=== PATIENT | female | born 1965 ===

== ENCOUNTER 2020-01-07 16:32 | Inpatient (IN) ==
[2020-01-07] MEDS ORDERED: 0.9 % SODIUM CHLORIDE 1,000 ML IV ONE (16:44)
[2020-01-07] MEDS ORDERED: PIPERACILLIN SODIUM/TAZOBACTAM 3.375 GM in DEXTROSE 5% IN WATER 50 ML IV ONE (16:46)
--- NOTE | 2020-01-07 16:57 | Emergency Department Note ---
Fever HPI - General Chief Complaint: Fever Stated Complaint: fever, urosepsis, positive blood cultures Time Seen by Provider: 01/07/20 16:43 Source: patient Mode of arrival: ambulatory Limitations: no limitations - History of Present Illness HPI Narrative: 54-year-old female returns to the ER for recheck. She was seen here yesterday and was diagnosed with a urinary tract infection and bronchitis. Also COPD. Yesterday her white blood cell count was 16.7 and she had a temperature of 104. she also had recent travel to [place] where there were ill people and she subsequently got ill. She also had a respiratory panel done as well as Covidien 19 testing. States her fever is slightly improved from yesterday and is been 103 most of today and she has been trying to rest and sleep. Staff had called her to check on her due to positive blood culture results and advised her to return for recheck. She does still have a dry cough. Positive fever and chills. Positive body aches. Had 1 day a few days ago of nausea and vomiting and diarrhea but none since then - Related Data Previous Rx's Medication Instructions Recorded Hydroxychloroquine [Plaquenil] 200 mg PO DAILY #7 tab 01/06/20 Levofloxacin [Levaquin] 500 mg PO DAILY #7 tab 01/06/20 Allergies Allergy/AdvReac Type Severity Reaction Status Date / Time No Known Drug Allergies Allergy Verified 01/07/20 16:34 Review of Systems All systems ED: reviewed and negative except as stated. Fever PMH - Past Medical History [facility] Narrative: Medical History Cigarette smoker (Chronic) Medical history: Denies: asthma, COPD - Social History smoking status: Current every day smoker Physical Exam Limitations: no limitations General appearance: alert Head: atraumatic, normocephalic, normal inspection Eye: Present: normal appearance. Absent: conjunctival injection ENT: Present: mucous membranes moist Chest: Present: symmetric chest wall rise Respiratory: Present: decreased breath sounds (bases bilat). Absent: re spiratory distress, rales/crackles, accessory muscle use Cardiovascular: Present: regular rate, normal heart sounds Extremities: Present: normal inspection, normal capillary refill. Absent: pedal edema Neurological: Present: alert, oriented X3 Psychiatric: Present: normal affect, normal mood Skin: Present: warm, dry, intact, normal color Course Course Narrative: @ [id number] Chicas agrees to accept patient Vital Signs Pulse Rate 110 H 01/07/20 16:32 Respiratory Rate 20 01/07/20 16:32 Blood Pressure 132/85 01/07/20 16:32 Pulse Oximetry (%) 97 01/07/20 16:32 Pulse Rate 110 H 01/07/20 16:32 Respiratory Rate 20 01/07/20 16:32 Blood Pressure 132/85 01/07/20 16:32 Pulse Oximetry (%) 97 01/07/20 16:32 Fever - Lab Data Result diagrams: 01/07/20 17:05 01/07/20 17:05 Disposition Pt seen by ENGINE MONITOR/PA only: Yes Clinical Impression: Bacteremia, UTI (urinary tract infection), Acute bronchitis Disposition: Xfer As Inpt ([facility]) Condition: Fair Referrals: Geri Meyer ARNP [Primary Care Provider] - Time of Disposition: 17:20
--- NOTE | 2020-01-07 17:29 | Internal Med History&Physical ---
Medical - H&P: [facility] Patient information: Note initiated : 01/07/20 at 5:26 pm Service Date, if different from initiated Date: [] Patient: Sabrina Otoole 54 y/o F admitted on for Fever, Urosepsis, Positive Blood Cultures. Chief Complaint: [] History of present illness: Ms. Otoole is a 54 year old F Patient presented yesterday to the ED due to shaking chills fever feeling ill. She was found have a fever of 104 with a leukocytosis. And mildly elevated lactate. She was given IV fluids and repeat lactate was within normal limits. Was diagnosed with urinary tract infection given a antibiotics. Cultures were obtained. And she was discharged on antibiotics. She returns today after being called for blood cultures that were positive for gram-negative bacillus. Patient still feverish though not as significant. She also recently traveled to [place] about a week ago where they were ill people and she subsequently got ill as well. She had covID-19 testing done in the ED yesterday. She had diarrhea at one point but none past few days. Mild dry cough, and reported body aches. Review of Systems: Pertinent positives as above. Denies headache/nausea/vomiting/chest or abdominal pain/dyspnea/diarrhea. Many 10 point review of system reviewed negative Medical - H&P: PMH Medical history: Medical History Cigarette smoker (Chronic) Past surgical history: Partial hysterectomy Breast augmentation Tonsillectomy Family: Mother had stroke Father was a quadriplegic with neck injury Social history: Patient smokes half pack per day Drinks alcohol 3-4 times a week Lives at home with her Medical - H&P: Meds Home Medications Medication Instructions Recorded Confirmed Type Hydroxychloroquine [Plaquenil] 200 mg PO DAILY #7 tab 01/06/20 01/07/20 Rx Levofloxacin [Levaquin] 500 mg PO DAILY #7 tab 01/06/20 01/07/20 Rx Allergies Allergy/AdvReac Type Severity Reaction Status Date / Time No Known Drug Allergies Allergy Verified 01/07/20 16:34 Medical - H&P: Exam - Constitutional Vitals: Pulse Resp BP Pulse Ox 110 H 20 132/85 97 01/07/20 16:32 01/07/20 16:32 01/07/20 16:32 01/07/20 16:32 Exam: General: Alert, Awake, No acute Distress Eyes/N/T: EOMI, PERRL, dry MM Head/Neck: neck supple, normocephalic atraumatic CV: RRR, No murmurs, normal s1/s2 Pulm: Clear b/l, no wheezing/rhonchi/rales Abd: soft, nontender, +BS x4 Ext: no clubbing/cyanosis/edema Neuro: Alert, no focal deficits, moves all extremities, CN 2-12 grossly intact, symmetrical strength b/l upper/lower, sensations intact b/l upper/lower Skin: warm/dry Medical - H&P: Reslt - Labs CBC & Chem 7: 01/07/20 17:05 01/07/20 17:05 Medical - H&P: A/P - Narrative A/P Narrative: A: *UTI: *Bacteremia (GNB): Likely 2/2 above *SIRS: *URI with dry Cough/body aches: r/o COVID-19, test done in ED on *Transaminitis: ?viral vs above *Hyponatremia: *Tobacco abuse: *Emphysema: per smoking history and CT chest findings, no official diagnosis * P: -IVF's -Zosyn, pending BC/UC -COVID19 pending -Check hepatitis panel, if liver enzymes worsen on f/u today will check liver ultrasound -f/u Na -Smoking cessation counseling -f/u with Pulm for possible PFT's -ppx: Lovenox
[2020-01-07] MEDS ORDERED: 0.9 % SODIUM CHLORIDE 1,000 ML IV SCH ×2 (17:45→20:28)
[2020-01-07 17:50] LABS: Basophils # (Auto) 0.02 K/mcL (0.00-0.30); Basophils % (Auto) 0.2 % (0.0-2.0); Eosinophils # (Auto) 0.02 K/mcL (0.00-0.70); Eosinophils % (Auto) 0.2 % (0.0-7.0); Granulocytes % (Auto) 94.1 % (38.0-78.0); Hematocrit 36.7 % (34.1-44.9); Hemoglobin 12.6 g/dL (11.2-15.7); Lymphocytes # (Auto) 0.34 K/mcL (1.50-4.80); Lymphocytes % (Auto) 2.7 % (15.5-49.0); Mean Cell Volume 92.4 fL (80.0-100.0); Mean Corpuscular HGB Conc 34.3 g/dL (31.0-36.0); Mean Platelet Volume 12.1 fL (7.4-10.4); Monocytes # (Auto) 0.35 K/mcL (0.10-0.90); Monocytes % (Auto) 2.8 % (1.0-12.0); Platelet Count 195 K/mcL (140-440); RBC 3.97 M/mcL (3.59-5.38); Red Cell Distribution Width 13.4 % (11.5-14.5); WBC 12.4 K/mcL (4.50-11.00)
[2020-01-07 20:12] LABS: ALT/SGPT 79 U/l (0-40); AST/SGOT 94 U/l (0-37); Albumin 2.6 gm/dL (3.2-5.2); Albumin/Globulin Ratio 0.8 (1.0-2.3); Alkaline Phosphatase 224 U/L (39-117); Bilirubin,Total 0.4 mg/dL (0.0-1.0); Blood Urea Nitrogen 11 mg/dl (6-20); Calcium 8.4 mg/dl (8.6-10.4); Carbon Dioxide 21 mmol/L (22-30); Chloride 99 mmol/L (96-108); Globulin 3.2 gm/dL (2.2-3.7); Glomerular Filtration Rate 97; Glucose 110 mg/dL (70-105)
[2020-01-07] MEDS ORDERED: POTASSIUM CHLORIDE 20 MEQ TABLET PO ONE (20:17)
[2020-01-07] MEDS ORDERED: LACTULOSE 20 GM/30 ML ORAL.SOL PO PRN (20:28)
[2020-01-07] MEDS ORDERED: POTASSIUM CHLORIDE 40 MEQ in DEXTROSE 5% IN WATER 500 ML IV PRN (20:28)
[2020-01-07] MEDS ORDERED: IPRATROPIUM/ALBUTEROL 3 ML AMPUL.NEB NEB PRN (20:28)
[2020-01-07] MEDS ORDERED: ONDANSETRON 4 MG/2 ML VIAL IV PRN (20:28)
[2020-01-07] MEDS ORDERED: MAGNESIUM SULFATE 2 GM/50 ML BAG IV PRN (20:28)
[2020-01-07] MEDS ORDERED: POLYETHYLENE GLYCOL 3350 17 GM PACKET PO PRN (20:28)
[2020-01-07] MEDS ORDERED: POTASSIUM CHLORIDE 20 MEQ TABLET PO PRN ×2 (20:28)
[2020-01-07] MEDS ORDERED: SENNOSIDES 1 TABLET PO PRN (20:28)
[2020-01-07] MEDS: 0.9 % SODIUM CHLORIDE 10 ML SYRINGE IV SCH (21:14)
[2020-01-07] MEDS: DOCUSATE SODIUM 100 MG CAPSULE PO SCH (21:14)
[2020-01-07] MEDS: ACETAMINOPHEN 325 MG TABLET PO PRN (23:49)
[2020-01-08] MEDS: PIPERACILLIN SODIUM/TAZOBACTAM 3.375 GM in DEXTROSE 5% IN WATER 50 ML IV SCH ×5 (00:15→23:44)
[2020-01-08] MEDS: 0.9 % SODIUM CHLORIDE 10 ML SYRINGE IV SCH ×3 (05:43→20:37)
[2020-01-08 07:07] LABS: Basophils # (Auto) 0.01 K/mcL (0.00-0.30); Basophils % (Auto) 0.1 % (0.0-2.0); Eosinophils # (Auto) 0.02 K/mcL (0.00-0.70); Eosinophils % (Auto) 0.1 % (0.0-7.0); Granulocytes % (Auto) 82.7 % (38.0-78.0); Hematocrit 35.6 % (34.1-44.9); Hemoglobin 12.1 g/dL (11.2-15.7); Lymphocytes # (Auto) 1.39 K/mcL (1.50-4.80); Lymphocytes % (Auto) 10.2 % (15.5-49.0); Mean Platelet Volume 11.7 fL (7.4-10.4); Monocytes # (Auto) 0.95 K/mcL (0.10-0.90); Monocytes % (Auto) 6.9 % (1.0-12.0); Platelet Count 245 K/mcL (140-440); RBC 3.83 M/mcL (3.59-5.38); Red Cell Distribution Width 13.8 % (11.5-14.5); WBC 13.7 K/mcL (4.50-11.00)
[2020-01-08 07:33] LABS: ALT/SGPT 104 U/l (0-40); AST/SGOT 150 U/l (0-37); Albumin 2.8 gm/dL (3.2-5.2); Albumin/Globulin Ratio 0.9 (1.0-2.3); Alkaline Phosphatase 258 U/L (39-117); Bilirubin,Direct 0.3 mg/dL (0.0-0.3); Bilirubin,Total 0.5 mg/dL (0.0-1.0); Blood Urea Nitrogen 7 mg/dl (6-20); Calcium 8.6 mg/dl (8.6-10.4); Carbon Dioxide 23 mmol/L (22-30); Chloride 96 mmol/L (96-108); Globulin 3.2 gm/dL (2.2-3.7); Glomerular Filtration Rate 82; Glucose 106 mg/dL (70-105); Lactate Dehydrogenase 270 U/L (94-250); Phosphorous 2.9 mg/dL (2.7-4.5); Triglycerides 159 mg/dl (<150); Uric Acid 2.2 mg/dL (2.5-8.0)
--- NOTE | 2020-01-08 07:37 | Internal Med Progress Note ---
Medical - PN: Subj Patient information: Note initiated : 01/08/20 at 7:33 am Service Date, if different from initiated Date: [] Patient: Sabrina Otoole 54 y/o F admitted on 01/07/20 for Fever, Urosepsis, Positive Blood Cultures. Chief Complaint: [] Interval history: Ms. Otoole is a 54 year old F Patient presented yesterday to the ED due to shaking chills fever feeling ill. She was found have a fever of 104 with a leukocytosis. And mildly elevated lactate. She was given IV fluids and repeat lactate was within normal limits. Was diagnosed with urinary tract infection given a antibiotics. Cultures were obtained. And she was discharged on antibiotics. She returns today after being called for blood cultures that were positive for gram-negative bacillus. Patient still feverish though not as significant. She also recently traveled to [place] about a week ago where they were ill people and she subsequently got ill as well. She had covID-19 testing done in the ED yesterday. She had diarrhea at one point but none past few days. Mild dry cough, and reported body aches. 4/1 Poor sleep first night last night. Feeling a little better. Mild bump in white blood cell count this morning as well as LFTs. Electrolyte imbalance. Cough. Review of Systems: denies headache/chills/nausea/vomiting/chest or abdominal pain/dyspnea/diarrhea. Otherwise see above. - Constitutional Vitals: Vital Signs Temp Pulse Resp BP Pulse Ox 99.8 F H 86 20 137/83 95 01/08/20 04:49 01/08/20 04:49 01/08/20 04:49 01/08/20 04:49 01/08/20 04:49 Period Temp Pulse Resp BP Sys/Hernandez Pulse Ox Last 24 Hr 98.1 F-102.4 F 73-113 18-20 103-152/46-96 95-100 Intake and Output 01/07/20 01/08/20 01/08/20 21:59 05:59 13:59 Intake Total 1171 410 Output Total 1900 Balance 1171 -1490 Weight 59.285 kg Intake & Output: Intake & Output 01/07/20 01/08/20 01/08/20 21:59 05:59 13:59 Intake Total 1171 410 Output Total 1900 Balance 1171 -1490 Weight 59.285 kg Intake: IV 1171 50 Sodium Chloride 0.9% 1,000 ml @ 1121 75 mls/hr IV .[id number] [facility] Rx#: [id number] Zosyn 3.375 gm In Dextrose 5% 50 50 in Water 50 ml @ 100 mls/hr IV Q6H [facility] Rx#:[id number] Oral 360 Output: Void Amount 1900 Other: Urine Appearance Clear Urine Color Bright Yellow Exam: General: Alert, Awake, No acute Distress Eyes/N/T: EOMI, Head/Neck: neck supple, CV: RRR, No murmurs, Pulm: Clear b/l, no wheezing/rhonchi/rales Abd: soft, nontender, +BS x4 Ext: no clubbing/cyanosis/edema Neuro: Alert, no focal deficits, moves all extremities, Skin: warm/dry Medical - PN: Obj Da - Labs CBC & Chem 7: 01/08/20 05:20 01/08/20 05:20 Labs: Abnormal Lab Results 01/08/20 01/08/20 01/07/20 05:20 05:20 18:28 WBC 13.7 H MPV 11.7 H Gran % 82.7 H Lymph % (Auto) 10.2 L Gran # 11.30 H Lymph # (Auto) 1.39 L Trimble # (Auto) 0.95 H Potassium 2.8 L* Carbon Dioxide 21 L Glucose 106 H 110 H Uric Acid 2.2 L Calcium 8.4 L GGT 317 H AST 150 H 94 H ALT 104 H 79 H Alkaline Phosphatase 258 H 224 H Lactate Dehydrogenase 270 H Total Protein 5.8 L Albumin 2.8 L 2.6 L Albumin/Globulin Ratio 0.9 L 0.8 L Triglycerides 159 H 01/07/20 17:05 WBC 12.4 H MPV 12.1 H Gran % 94.1 H Lymph % (Auto) 2.7 L Gran # 11.66 H Lymph # (Auto) 0.34 L Trimble # (Auto) Potassium Carbon Dioxide Glucose Uric Acid Calcium GGT AST ALT Alkaline Phosphatase Lactate Dehydrogenase Total Protein Albumin Albumin/Globulin Ratio Triglycerides Meds: Medications Acetaminophen (Tylenol) 650 mg PO Q6HP PRN PRN Reason: PAIN/FEVER > 101 Last Admin: 01/07/20 23:49 Dose: 650 mg Documented by: Albuterol/Ipratropium (Duoneb) 3 ml NEB Q4HP PRN PRN Reason: Shortness Of Breath Docusate Sodium (Colace) 100 mg PO BID [facility] Last Admin: 01/07/20 21:14 Dose: Not Given Documented by: Enoxaparin Sodium (Lovenox) 40 mg SQ DAILY [facility] Hydroxychloroquine Sulfate (Plaquenil) 200 mg PO BID [facility] Stop: 01/08/20 21:01 Hydroxychloroquine Sulfate (Plaquenil) 200 mg PO DAILY [facility] Stop: 01/13/20 09:01 Potassium Chloride 40 meq/ (Dextrose) 520 mls @ 130 mls/hr IV UD PRN PRN Reason: Potassium < 3 Magnesium Sulfate (Magnesium Sulfate) 2 gm in 50 mls @ 50 mls/hr IV UD PRN PRN Reason: Magnesium </= 1.6 Piperacillin Sod/Tazobactam (Sod 3.375 gm/ Dextrose) 50 mls @ 100 mls/hr IV Q6H [facility]; Protocol Last Admin: 01/08/20 05:45 Dose: 100 mls/hr Documented by: Lactulose (Cephulac) 20 gm PO DAILYP PRN PRN Reason: Constipation Ondansetron HCl (Zofran) 4 mg IV Q4HP PRN PRN Reason: Nausea And Vomiting Polyethylene Glycol (Miralax) 17 gm PO DAILYP PRN PRN Reason: Constipation Potassium Chloride (Kdur) 40 meq PO UD PRN PRN Reason: Potssium is 3-3.5 Potassium Chloride (Kdur) 40 meq PO UD PRN PRN Reason: Potassium < 3 Senna (Senokot) 2 tab PO DAILYP PRN PRN Reason: Constipation Sodium Chloride (Saline Flush) 10 ml IV Q8 [facility] Last Admin: 01/08/20 05:43 Dose: Not Given Documented by: Medical - PN: A/P - Time Spent With Patient Total time spent is greater than 50% in coordination of care (as documented) at patient's floor/unit and/or counseling patient: - Narrative A/P Narrative: A: *UTI (e. coli - pansensitive): *Bacteremia (GNB): Likely 2/2 above *SIRS: -Tm 102.4 last night -leukocytosis, lactate ok *URI with dry Cough/body aches: r/o COVID-19, test done in ED on -RVP neg *Transaminitis: 2/2 ?viral vs above. was started on hydroxychloroquine on from ED but liver enzymes were elevated at that time as well -hepatitis panel neg *Hyponatremia/hypokalemia: *Tobacco abuse: *Emphysema: per smoking history and CT chest findings, no official diagnosis * P: -IVF's d/c -Zosyn, pending BC/UC. Transition to oral antibiotics after afebrile x48 hours -COVID19 pending, hydroxychloroquine started outpt - will d/c -Check hepatitis panel/liver ultrasound -Smoking cessation counseling -f/u with Pulm for possible PFT's -ppx: Lovenox Medical - PN: Qual - Stroke Symptom Onset Unknown: No - VTE Deep Vein Thrombosis/Pulmonary Embolism Present on Admission: No
[2020-01-08 07:52] LABS: Hepatitis B Surface Antigen NEGATIVE (NEGATIVE); Hepatitis C Virus Antibody NON REACTIVE (NEGATIVE)
[2020-01-08] MEDS ORDERED: HYDROXYCHLOROQUINE 200 MG TABLET PO SCH (09:00)
[2020-01-08] MEDS: DOCUSATE SODIUM 100 MG CAPSULE PO SCH ×2 (09:21→20:37)
[2020-01-08] MEDS: ENOXAPARIN 40 MG/0.4 ML SYRINGE SQ SCH (09:23)
[2020-01-08 09:54] LABS: Band Neutrophils % 12 % (0-10); Eosinophils % (Manual) 1 % (0-7); Lymphocytes % 12 % (15-49); Monocytes % (Manual) 6 % (1-12); Platelet Estimate NORMAL (NORMAL); RBC Morphology NORMAL (NORMAL); Segmented Neutrophils % 69 % (38-78)
--- NOTE | 2020-01-08 10:46 | Ultrasound Report ---
CLINICAL INFORMATION: transaminitis COMPARISON: None. FINDINGS: Liver is mildly enlarged with a vertical dimension of 17 cm and decreased echotexture suggesting diffuse hepatocellular process. 1.6 cm well-circumscribed lesion in the posterior right hepatic lobe and a second 1.2 cm hyperechoic lesion in the mid right hepatic lobe are almost certainly benign hemangiomas. Gallbladder and bile ducts are normal CBD is 3 mm. The pancreas is normal. No free fluid IMPRESSION: Mild enlarged, hypoechoic liver suggests a gestational of a diffuse hepatocellular process such as hepatitis Two hyperechoic lesions in the right hepatic lobe, 1.6 and 1.2 cm, respectively almost certainly represent benign hemangiomas. Suggest six month follow-up liver ultrasound to ensure stability Interpreted and Authenticated by: Elio Howard 01/08/20
[2020-01-08] MEDS: ACETAMINOPHEN 325 MG TABLET PO PRN ×2 (14:43→23:44)
[2020-01-09] MEDS: 0.9 % SODIUM CHLORIDE 10 ML SYRINGE IV SCH ×3 (05:33→23:52)
[2020-01-09] MEDS: PIPERACILLIN SODIUM/TAZOBACTAM 3.375 GM in DEXTROSE 5% IN WATER 50 ML IV SCH ×4 (05:33→23:52)
[2020-01-09 06:17] LABS: Hematocrit 34.3 % (34.1-44.9); Hemoglobin 11.9 g/dL (11.2-15.7); Mean Cell Volume 92.7 fL (80.0-100.0); Mean Corpuscular HGB Conc 34.7 g/dL (31.0-36.0); Mean Platelet Volume 11.6 fL (7.4-10.4); Platelet Count 264 K/mcL (140-440); WBC 14.3 K/mcL (4.50-11.00)
[2020-01-09 06:54] LABS: ALT/SGPT 124 U/l (0-40); AST/SGOT 148 U/l (0-37); Albumin 2.7 gm/dL (3.2-5.2); Albumin/Globulin Ratio 0.8 (1.0-2.3); Alkaline Phosphatase 300 U/L (39-117); Bilirubin,Total 0.9 mg/dL (0.0-1.0); Calcium 8.6 mg/dl (8.6-10.4); Carbon Dioxide 24 mmol/L (22-30); Chloride 102 mmol/L (96-108); Globulin 3.5 gm/dL (2.2-3.7); Glomerular Filtration Rate 97; Glucose 104 mg/dL (70-105); Lactate Dehydrogenase 300 U/L (94-250); Phosphorous 3.5 mg/dL (2.7-4.5); Triglycerides 165 mg/dl (<150)
[2020-01-09 06:56] LABS: Bilirubin,Direct 0.4 mg/dL (0.0-0.3); Blood Urea Nitrogen 5 mg/dl (6-20); Uric Acid 1.7 mg/dL (2.5-8.0)
[2020-01-09 07:13] LABS: Band Neutrophils % 4 % (0-10); Lymphocytes % 12 % (15-49); Monocytes % (Manual) 5 % (1-12); Myelocytes % 1 % (0-0); Platelet Estimate NORMAL (NORMAL); RBC Morphology NORMAL (NORMAL); Segmented Neutrophils % 78 % (38-78)
[2020-01-09] MEDS: ENOXAPARIN 40 MG/0.4 ML SYRINGE SQ SCH (07:36)
[2020-01-09] MEDS: DOCUSATE SODIUM 100 MG CAPSULE PO SCH ×2 (07:59→22:40)
--- NOTE | 2020-01-09 08:08 | Internal Med Progress Note ---
Medical - PN: Subj Patient information: Note initiated : 01/09/20 at 8:03 am Service Date, if different from initiated Date: [] Patient: Sabrina Otoole 54 y/o F admitted on 01/07/20 for Fever, Urosepsis, Positive Blood Cultures. Chief Complaint: [] Interval history: Ms. Otoole is a 54 year old F Patient presented yesterday to the ED due to shaking chills fever feeling ill. She was found have a fever of 104 with a leukocytosis. And mildly elevated lactate. She was given IV fluids and repeat lactate was within normal limits. Was diagnosed with urinary tract infection given a antibiotics. Cultures were obtained. And she was discharged on antibiotics. She returns today after being called for blood cultures that were positive for gram-negative bacillus. Patient still feverish though not as significant. She also recently traveled to [place] about a week ago where they were ill people and she subsequently got ill as well. She had covID-19 testing done in the ED yesterday. She had diarrhea at one point but none past few days. Mild dry cough, and reported body aches. 4/1 Poor sleep first night last night. Feeling a little better. Mild bump in white blood cell count this morning as well as LFTs. Electrolyte imbalance. Cough. 4/2 Better sleep. Feeling better. mild bump in white blood cell count but bandemia resolved.. Patient mildly febrile overnight but fever curve improving. Procalcitonin improving. Mild cough. Elevated liver enzymes stable. Patient does report more daily drinking lately while she was on occasion. Tylenol Extra Strength 5 to 6 tablets daily for s everal days prior to coming in. Review of Systems: denies headache/chills/nausea/vomiting/chest or abdominal pain/dyspnea/diarrhea. Otherwise see above. - Constitutional Vitals: Vital Signs Temp Pulse Resp BP Pulse Ox 99.2 F H 83 18 140/92 97 01/09/20 07:14 01/09/20 07:14 01/09/20 03:30 01/09/20 07:14 01/09/20 07:14 Period Temp Pulse Resp BP Sys/Hernandez Pulse Ox Last 24 Hr 98.1 F-100.6 F 68-98 18-22 105-140/66-92 96-98 Intake and Output 01/08/20 01/09/20 01/09/20 21:59 05:59 13:59 Intake Total 50 850 50 Output Total 2400 1550 350 Balance -2350 -700 -300 Weight 59.103 kg Intake & Output: Intake & Output 01/08/20 01/09/20 01/09/20 21:59 05:59 13:59 Intake Total 50 850 50 Output Total 2400 1550 350 Balance -2350 -700 -300 Weight 59.103 kg Intake: IV 50 50 50 Zosyn 3.375 gm In Dextrose 5% 50 50 50 in Water 50 ml @ 100 mls/hr IV Q6H [facility] Rx#:[id number] Oral 800 Output: Void Amount 2400 1550 Urine/Stool Mix 350 Other: Urine Appearance Clear Clear Urine Color Bright Yellow Dark Yellow Urine Odor Normal Stool Size Small Stool Color Brown Brown Stool Consistency Formed Soft Loose # Bowel Movements 1 Exam: General: Alert, Awake, No acute Distress Eyes/N/T: EOMI, Head/Neck: neck supple, CV: RRR, No murmurs, Pulm: Clear b/l, no wheezing/rhonchi/rales Abd: soft, nontender, +BS x4 Ext: no clubbing/cyanosis/edema Neuro: Alert, no focal deficits, moves all extremities, Skin: warm/dry Medical - PN: Obj Da - Labs CBC & Chem 7: 01/09/20 05:20 01/09/20 05:20 Labs: Abnormal Lab Results 01/09/20 01/09/20 01/08/20 05:20 05:20 05:20 WBC 14.3 H MPV 11.6 H Gran % Lymph % (Auto) Gran # Lymph # (Auto) Loving # (Auto) Band Neutrophils % 12 H Lymphocytes % 12 L 12 L Myelocytes % 1 H Sodium Potassium Carbon Dioxide BUN 5 L Glucose Uric Acid 1.7 L Calcium Direct Bilirubin 0.4 H GGT 417 H AST 148 H ALT 124 H Alkaline Phosphatase 300 H Lactate Dehydrogenase 300 H Total Protein Albumin 2.7 L Albumin/Globulin Ratio 0.8 L Triglycerides 165 H 01/08/20 01/08/20 01/07/20 05:20 05:20 18:28 WBC 13.7 H MPV 11.7 H Gran % 82.7 H Lymph % (Auto) 10.2 L Gran # 11.30 H Lymph # (Auto) 1.39 L Loving # (Auto) 0.95 H Band Neutrophils % Lymphocytes % Myelocytes % Sodium 131 L Potassium 2.9 L* 2.8 L* Carbon Dioxide 21 L BUN Glucose 106 H 110 H Uric Acid 2.2 L Calcium 8.4 L Direct Bilirubin GGT 317 H AST 150 H 94 H ALT 104 H 79 H Alkaline Phosphatase 258 H 224 H Lactate Dehydrogenase 270 H Total Protein 5.8 L Albumin 2.8 L 2.6 L Albumin/Globulin Ratio 0.9 L 0.8 L Triglycerides 159 H 01/07/20 17:05 WBC 12.4 H MPV 12.1 H Gran % 94.1 H Lymph % (Auto) 2.7 L Gran # 11.66 H Lymph # (Auto) 0.34 L Loving # (Auto) Band Neutrophils % Lymphocytes % Myelocytes % Sodium Potassium Carbon Dioxide BUN Glucose Uric Acid Calcium Direct Bilirubin GGT AST ALT Alkaline Phosphatase Lactate Dehydrogenase Total Protein Albumin Albumin/Globulin Ratio Triglycerides Meds: Medications Acetaminophen (Tylenol) 650 mg PO Q6HP PRN PRN Reason: PAIN/FEVER > 101 Last Admin: 01/08/20 23:44 Dose: 650 mg Documented by: Albuterol/Ipratropium (Duoneb) 3 ml NEB Q4HP PRN PRN Reason: Shortness Of Breath Docusate Sodium (Colace) 100 mg PO BID [facility] Last Admin: 01/09/20 07:59 Dose: Not Given Documented by: Enoxaparin Sodium (Lovenox) 40 mg SQ DAILY [facility] Last Admin: 01/09/20 07:36 Dose: 40 mg Documented by: Potassium Chloride 40 meq/ (Dextrose) 520 mls @ 130 mls/hr IV UD PRN PRN Reason: Potassium < 3 Last Infusion: 01/08/20 13:19 Dose: Infused Documented by: Magnesium Sulfate (Magnesium Sulfate) 2 gm in 50 mls @ 50 mls/hr IV UD PRN PRN Reason: Magnesium </= 1.6 Last Infusion: 01/08/20 09:00 Dose: Infused Documented by: Piperacillin Sod/Tazobactam (Sod 3.375 gm/ Dextrose) 50 mls @ 100 mls/hr IV Q6H [facility]; Protocol Last Infusion: 01/09/20 07:03 Dose: Infused Documented by: Lactulose (Cephulac) 20 gm PO DAILYP PRN PRN Reason: Constipation Ondansetron HCl (Zofran) 4 mg IV Q4HP PRN PRN Reason: Nausea And Vomiting Polyethylene Glycol (Miralax) 17 gm PO DAILYP PRN PRN Reason: Constipation Potassium Chloride (Kdur) 40 meq PO UD PRN PRN Reason: Potssium is 3-3.5 Potassium Chloride (Kdur) 40 meq PO UD PRN PRN Reason: Potassium < 3 Last Admin: 01/08/20 10:41 Dose: 40 meq Documented by: Senna (Senokot) 2 tab PO DAILYP PRN PRN Reason: Constipation Sodium Chloride (Saline Flush) 10 ml IV Q8 [facility] Last Admin: 01/09/20 05:33 Dose: 10 ml Documented by: Medical - PN: A/P - Time Spent With Patient Total time spent is greater than 50% in coordination of care (as documented) at patient's floor/unit and/or counseling patient: - Narrative A/P Narrative: A: *UTI (e. coli - pansensitive): *Bacteremia (e.coli): Likely 2/2 above *SIRS: -Tm 100.6 last night. fever curve improving -leukocytosis persistent but bandemia resolved, lactate ok, PCT improving *URI w/dry Cough & body aches: r/o COVID-19, test done in ED on -RVP neg *Transaminitis: 2/2 ?viral vs above vs Tylenol (up to 3grams/day for several days) and etoh (more use lately while on vacation) -was started on hydroxychloroquine on from ED but liver enzymes were elevated at that time as well -hepatitis panel neg; INR ok, -Liver u/s mild enlargement and hypoechoic suggesting hepatocellular process. no biliary dilation. *Hyponatremia/hypokalemia: resolved *Tobacco abuse: *Emphysema: per smoking history and CT chest findings, no official diagnosis * P: -Zosyn, pending BC/UC. Transition to oral antibiotics after afebrile x48 hours -COVID19 pending, hydroxychloroquine started outpt - stopped -f/u with GI regarding liver; pending autoimmune labs -Smoking cessation counseling -f/u with Pulm for possible PFT's -ppx: Lovenox Medical - PN: Qual - Stroke Symptom Onset Unknown: No - VTE Deep Vein Thrombosis/Pulmonary Embolism Present on Admission: No
[2020-01-09] MEDS ORDERED: HYDROXYCHLOROQUINE 200 MG TABLET PO SCH (09:00)
[2020-01-09 09:46] LABS: INR 1.1 (0.9-1.1); Prothrombin Time 14.3 sec (11.9-14.5)
--- NOTE | 2020-01-09 10:46 | Discharge Summary ---
Medical - DS: Prov Patient information: Note initiated : 01/09/20 at 10:42 am Service Date, if different from initiated Date: [] Patient: Sabrina Otoole 54 y/o F admitted on 01/07/20 for Fever, Urosepsis, Positive Blood Cultures. Chief Complaint: [] Date of admission: 01/07/20 20:07 Discharge date: 01/10/20 Primary care physician: BENNETT Sanchez Consults: 01/07/20 Consult to Physician [CONS] Stat Comment: Consulting Provider: Charles Chicas Reason For Exam: Physician to Consult Medical - DS: Meds - Discharge Medications Prescriptions: Ciprofloxacin [Cipro] 500 mg PO BID #10 tab Active and Home Medications: Home Medications Hydroxychloroquine [Plaquenil] 200 mg PO DAILY #7 tab 01/06/20 [Rx Confirmed 01/07/20 Last Taken 01/07/20 10:00] Levofloxacin [Levaquin] 500 mg PO DAILY #7 tab 01/06/20 [Rx Confirmed 01/07/20 Last Taken 01/07/20 10:00] Aspirin [Radha Chewable Aspirin] 81 mg PO DAILY 01/07/20 [History Confirmed 01/07/20 Last Taken 01/07/20 10:00] Ibuprofen [Motrin Ib] 400 mg PO Q6H 01/07/20 [History Confirmed 01/07/20 Last Taken 01/07/20 14:30] Pedi Multivit No.25/Folic Acid [Children Multivitamin Chew Tab] 1 tab PO DAILY 01/07/20 [History Confirmed 01/07/20 Last Taken 01/07/20 10:00] Home Medications Hydroxychloroquine [Plaquenil] 200 mg PO DAILY #7 tab 01/06/20 [Rx Confirmed 01/07/20 Last Taken 01/07/20 10:00] Levofloxacin [Levaquin] 500 mg PO DAILY #7 tab 01/06/20 [Rx Confirmed 01/07/20 Last Taken 01/07/20 10:00] Aspirin [Radha Chewable Aspirin] 81 mg PO DAILY 01/07/20 [History Confirmed 01/07/20 Last Taken 01/07/20 10:00] Ibuprofen [Motrin Ib] 400 mg PO Q6H 01/07/20 [History Confirmed 01/07/20 Last Taken 01/07/20 14:30] Pedi Multivit No.25/Folic Acid [Children Multivitamin Chew Tab] 1 tab PO DAILY 01/07/20 [History Confirmed 01/07/20 Last Taken 01/07/20 10:00] Ciprofloxacin [Cipro] 500 mg PO BID #10 tab 01/09/20 [Rx Last Taken Unknown] start ciprofloxacin on 01/11/2020 Medical - DS: Hosp Hospital Course: Ms. Otoole is a 54 year old F Patient presented yesterday to the ED due to shaking chills fever feeling ill. She was found have a fever of 104 with a leukocytosis. And mildly elevated lactate. She was given IV fluids and repeat lactate was within normal limits. Was diagnosed with urinary tract infection given a antibiotics. Cultures were obtained. And she was discharged on antibiotics. She returns today after being called for blood cultures that were positive for gram-negative bacillus. Patient still feverish though not as significant. She also recently traveled to [place] about a week ago where they were ill people and she subsequently got ill as well. She had covID-19 testing done in the ED yesterday. She had diarrhea at one point but none past few days. Mild dry cough, and reported body aches. 4/1 Poor sleep first night last night. Feeling a little better. Mild bump in white blood cell count this morning as well as LFTs. Electrolyte imbalance. Cough. 4/2 Better sleep. Feeling better. mild bump in white blood cell count but bandemia resolved.. Patient mildly febrile overnight but fever curve improving. Procalcitonin improving. Mild cough. Elevated liver enzymes stable. Patient does report more daily drinking lately while she was on occasion. Tylenol Extra Strength 5 to 6 tablets daily for several days prior to coming in. 4/3 Patient doing well. White blood cell count improved. Procalcitonin improved. liver function improved. Patient stable for discharge A: *UTI (e. coli - pansensitive): *Bacteremia (e.coli): Likely 2/2 above *SIRS: -Tm 100.6 last night. fever curve improving -leukocytosis persistent but bandemia resolved, lactate ok, PCT improving *URI w/dry Cough & body aches: r/o COVID-19, test done in ED on neg *Transaminitis: 2/2 ?viral vs above vs Tylenol (up to 3grams/day for several days) and etoh (more use lately while on vacation) -was started on hydroxychloroquine on 30 from ED but liver enzymes were elevated at that time as well -hepatitis panel neg; INR ok, -Liver u/s mild enlargement and hypoechoic suggesting hepatocellular process. no biliary dilation. *Hyponatremia/hypokalemia: resolved *Tobacco abuse: *Emphysema: per smoking history and CT chest findings, no official diagnosis Discharge diagnosis: UTI E. coli bacteremia E. coli Sirs URI is laminitis Secondary discharge diagnosis: Tobacco abuse and likely COPD - Time Spent with Patient Total time spent providing and/or coordinating discharge services: Greater than 30 minutes Medical - DS: Exam - Constitutional Vitals: Vital Signs Temp Pulse Resp BP Pulse Ox 01/09/20 08:00 18 97 01/09/20 07:14 99.2 F H 83 140/92 97 01/09/20 03:30 98.1 F 68 18 133/78 97 01/09/20 00:26 100.6 F H 01/08/20 23:44 100.4 F H 01/08/20 23:37 100.4 F H 89 18 136/79 98 01/08/20 19:17 18 98 01/08/20 18:23 98.8 F 95 H 18 111/69 98 01/08/20 17:05 99.3 F H 98 H 22 105/66 96 01/08/20 11:26 99.9 F H 87 20 133/85 98 01/08/20 11:25 92 H 98 Intake and Output 01/08/20 01/09/20 01/09/20 21:59 05:59 13:59 Intake Total 50 850 50 Output Total 2400 1550 350 Balance -2350 -700 -300 Intake: IV 50 50 50 Zosyn 3.375 gm In Dextrose 5% 50 50 50 in Water 50 ml @ 100 mls/hr IV Q6H [facility] Rx#:[id number] Oral 800 Output: Void Amount 2400 1550 Urine/Stool Mix 350 Other: Urine Appearance Clear Clear Clear Urine Color Bright Yellow Dark Yellow Dark Yellow Urine Odor Normal Normal Stool Size Small Stool Color Brown Brown Stool Consistency Formed Soft Loose # Bowel Movements 1 Weight 59.103 kg Medical - DS: Data Labs on day of discharge: Labs from last 24 hours 0401/09/20 01/09/20 09:00 09:00 09:00 WBC RBC Hgb Hct MCV MCH MCHC RDW Plt Count MPV Total Counted Seg Neutrophils % Band Neutrophils % Lymphocytes % Monocytes % (Manual) Myelocytes % Platelet Estimate RBC Morphology PT 14.3 INR 1.1 Sodium Potassium Chloride Carbon Dioxide Anion Gap BUN Creatinine GFR Calculation Glucose Uric Acid Calcium Phosphorus Magnesium Total Bilirubin Direct Bilirubin GGT AST ALT Alkaline Phosphatase Lactate Dehydrogenase Total Protein Albumin Globulin Albumin/Globulin Ratio Triglycerides Procalcitonin TSH Acetaminophen SIMONA Screen Pending Actin IgG Antibody Pending 01/09/20 01/09/20 01/09/20 05:20 05:20 05:20 WBC RBC Hgb Hct MCV MCH MCHC RDW Plt Count MPV Total Counted Seg Neutrophils % Band Neutrophils % Lymphocytes % Monocytes % (Manual) Myelocytes % Platelet Estimate RBC Morphology PT INR Sodium Potassium Chloride Carbon Dioxide Anion Gap BUN Creatinine GFR Calculation Glucose Uric Acid Calcium Phosphorus Magnesium Total Bilirubin Direct Bilirubin GGT AST ALT Alkaline Phosphatase Lactate Dehydrogenase Total Protein Albumin Globulin Albumin/Globulin Ratio Triglycerides Procalcitonin 4.15 TSH 1.74 Acetaminophen < 5.0 SIMONA Screen Actin IgG Antibody 01/09/20 01/09/20 05:20 05:20 WBC 14.3 H RBC 3.70 Hgb 11.9 Hct 34.3 MCV 92.7 MCH 32.2 MCHC 34.7 RDW 14.0 Plt Count 264 MPV 11.6 H Total Counted 100 Seg Neutrophils % 78 Band Neutrophils % 4 Lymphocytes % 12 L Monocytes % (Manual) 5 Myelocytes % 1 H Platelet Estimate Normal RBC Morphology Normal PT INR Sodium 138 Potassium 3.6 Chloride 102 Carbon Dioxide 24 Anion Gap 12.0 BUN 5 L Creatinine 0.7 GFR Calculation 97 Glucose 104 Uric Acid 1.7 L Calcium 8.6 Phosphorus 3.5 Magnesium 1.9 Total Bilirubin 0.9 Direct Bilirubin 0.4 H GGT 417 H AST 148 H ALT 124 H Alkaline Phosphatase 300 H Lactate Dehydrogenase 300 H Total Protein 6.2 Albumin 2.7 L Globulin 3.5 Albumin/Globulin Ratio 0.8 L Triglycerides 165 H Procalcitonin TSH Acetaminophen SIMONA Screen Actin IgG Antibody Medical - DS: A/P - Patient/Caregiver Discharge Instructions Activity: increase activity as tolerated Diet: Regular Diet Additional Instructions: Referral to see assistant golf professional in 1 to 2 weeks for emphysema evaluation. Referral to see commercial counsel in 1 to 2 weeks for elevated liver enzymes. Prescriptions: Ciprofloxacin [Cipro] 500 mg PO BID #10 tab - Follow up Plan Follow up with: Geri Meyer ARNP [Primary Care Provider] - Disposition: Home, Self-Care Prognosis: Fair Rehab Potential: Fair Overall status at discharge: patient is progressing back to baseline Medical - DS: Qual - VTE Deep Vein Thrombosis/Pulmonary Embolism Present on Admission: No
[2020-01-10] MEDS: PIPERACILLIN SODIUM/TAZOBACTAM 3.375 GM in DEXTROSE 5% IN WATER 50 ML IV SCH (05:51)
[2020-01-10] MEDS: 0.9 % SODIUM CHLORIDE 10 ML SYRINGE IV SCH (05:51)
[2020-01-10 06:27] LABS: Basophils # (Auto) 0.03 K/mcL (0.00-0.30); Basophils % (Auto) 0.3 % (0.0-2.0); Eosinophils # (Auto) 0.08 K/mcL (0.00-0.70); Eosinophils % (Auto) 0.7 % (0.0-7.0); Granulocytes % (Auto) 70.1 % (38.0-78.0); Hematocrit 33.7 % (34.1-44.9); Hemoglobin 11.9 g/dL (11.2-15.7); Lymphocytes # (Auto) 1.99 K/mcL (1.50-4.80); Lymphocytes % (Auto) 17.3 % (15.5-49.0); Mean Cell Volume 90.3 fL (80.0-100.0); Mean Corpuscular HGB Conc 35.3 g/dL (31.0-36.0); Mean Platelet Volume 11.3 fL (7.4-10.4); Monocytes # (Auto) 1.34 K/mcL (0.10-0.90); Monocytes % (Auto) 11.6 % (1.0-12.0); Platelet Count 366 K/mcL (140-440); RBC 3.73 M/mcL (3.59-5.38); Red Cell Distribution Width 13.5 % (11.5-14.5); WBC 11.5 K/mcL (4.50-11.00)
[2020-01-10 07:07] LABS: ALT/SGPT 96 U/l (0-40); AST/SGOT 73 U/l (0-37); Albumin 2.8 gm/dL (3.2-5.2); Albumin/Globulin Ratio 0.8 (1.0-2.3); Alkaline Phosphatase 291 U/L (39-117); Bilirubin,Total 0.4 mg/dL (0.0-1.0); Blood Urea Nitrogen 5 mg/dl (6-20); Calcium 8.6 mg/dl (8.6-10.4); Carbon Dioxide 24 mmol/L (22-30); Chloride 98 mmol/L (96-108); Globulin 3.5 gm/dL (2.2-3.7); Glomerular Filtration Rate 97; Glucose 102 mg/dL (70-105); Lactate Dehydrogenase 312 U/L (94-250); Triglycerides 184 mg/dl (<150)
[2020-01-10 07:14] LABS: Bilirubin,Direct < 0.2 mg/dL (0.0-0.3); Phosphorous 4.7 mg/dL (2.7-4.5); Uric Acid 2.1 mg/dL (2.5-8.0)
[2020-01-10] MEDS ORDERED: POTASSIUM CHLORIDE 20 MEQ TABLET PO ONE (07:45)
[2020-01-10] MEDS: ENOXAPARIN 40 MG/0.4 ML SYRINGE SQ SCH (08:32)
[2020-01-10] MEDS: DOCUSATE SODIUM 100 MG CAPSULE PO SCH (08:45)
[2020-01-10] MEDS ORDERED: cefTRIAXone 2 GM in DEXTROSE 5% IN WATER 50 ML IV SCH (09:00)
[2020-01-13 08:18] LABS: Actin (Smooth Muscle)AB IGG-SO 22 U
[2020-01-14 12:34] LABS: Anti-Nuclear Antibody Pattern HOMOGENEOUS
== END 2020-01-10 13:00 | disposition home or self-care (01) | DRG 690 ==
LOC: ED 16:32 → ICU 20:05 → MEDSUR 01-09 15:36
PROVIDERS: ADMIT Internal Medicine; ATTEND Internal Medicine